=== PATIENT | male | born 1990 | race Caucasian/White ===

== ENCOUNTER 2021-01-29 20:41 | Emergency (ER) | payer SELFPAY ==
[~2021-01-29] VITALS: Ht 177.8 cm; Wt 80.0 kg
--- NOTE | 2021-01-29 20:50 | PHYS DOC ---
General Adult EDM: Chief Complaint: TESTICULAR PAIN OR INJURY HPI: HPI: Patient is a 30 year old male who presents with pain in testicle area. (AIDE PATE MD) HPI: Patient is a 30-year-old male being seen in the ER brought in by EMS today for left lower quadrant pain that radiates to his left flank and left testicle that started this morning. Patient is also reporting decreased urine output. He rates the pain 9 out of 10, no alleviating or aggravating factors, no treatment prior to arrival. Patient denies any trauma or injury. Patient denies chest pain, shortness of breath, fevers, nausea, vomiting, diarrhea, dysuria, urinary frequency or urgency. EMS administered 50 mics of fentanyl prior to patient arrival in the ER. (HYUN HUYNH APRN) Review of Systems: Review of Systems: Constitutional: Denies fever or chills Eyes: Denies change in visual acuity HENT: Denies nasal congestion or sore throat Respiratory: Denies cough or shortness of breath Cardiovascular: Denies chest pain or edema GI: Denies abdominal pain, nausea, vomiting, bloody stools or diarrhea : Denies dysuria Musculoskeletal: Denies back pain or joint pain Integument: Denies rash Neurologic: Denies headache, focal weakness or sensory changes Endocrine: Denies polyuria or polydipsia Lymphatic: Denies swollen glands Psychiatric: Denies depression or anxiety (AIDE PATE MD) Review of Systems: 14 body systems of the review of systems have been reviewed. See HPI for pertinent positive and negative responses, otherwise all other systems are negative, nonpertinent or noncontributory (HYUN HUYNH APRN) Physical Exam: PE: Constitutional: Well developed, well nourished, no acute distress, non-toxic appearance. [] HENT: Normocephalic, atraumatic, bilateral external ears normal, oropharynx moist, no oral exudates, nose normal. [] Eyes: PERRLA, EOMI, conjunctiva normal, no discharge. [] Neck: Normal range of motion, no tenderness, supple, no stridor. [] Cardiovascular:Heart rate regular rhythm, no murmur [] Lungs & Thorax: Bilateral breath sounds clear to auscultation [] Abdomen: Bowel sounds normal, soft, no tenderness, no masses, no pulsatile masses. [] Skin: Warm, dry, no erythema, no rash. [] Back: No tenderness, no CVA tenderness. [] Extremities: No tenderness, no cyanosis, no clubbing, ROM intact, no edema. [] Neurologic: Alert and oriented X 3, normal motor function, normal sensory function, no focal deficits noted. [] Psychologic: Affect normal, judgement normal, mood normal. [] (AIDE PATE MD) PE: General: Appears well, nontoxic, and comfortable Skin: Warm, dry. HEENT: Atraumatic, PERRLA. Moist mucous membranes. Neck trachea midline, normal range of motion Respiratory: Normal work of breathing, clear to auscultation bilaterally, normal work of breathing, no tachypnea Cardiovascular: Regular rate and rhythm. Normal peripheral perfusion. No edema Abdomen soft, no distention, active bowel sounds in all 4 quadrants, tenderness with palpation to left lower quadrant, no rebound tenderness Genital: No swelling noted to the testicles, no high riding testes, cremasteric reflex intact, pain with palpation of testes Back: Normal range of motion, negative CVA tenderness Musculoskeletal: No swelling or deformity. Neuro: Alert and oriented x, 4 no focal deficits Psych: Normal affect and mood (HYUN HUYNH APRN) EKG: EKG: [] (AIDE PATE MD) Radiology/Procedures: Radiology/Procedures: [] (AIDE PATE MD) Radiology/Procedures: PROCEDURE: CT ABDOMEN PELVIS WO CONTRAST Exam: CT of abdomen and pelvis without contrast INDICATION: Left lower quadrant pain, flank pain, rule out stone TECHNIQUE: Sequential axial images through the abdomen and pelvis obtained without IV contrast. Sagittal and coronal reformatted images were reconstructed from the axial data and reviewed. Exposure: One or more of the following in the visualized dose reduction techniques were utilized for this examination: 1. Automated exposure control 2. Adjustment of the MA and/or KV according to patient size 3. Use of iterative of reconstructive technique Comparisons: None FINDINGS: Heart size is normal. No pericardial effusion. Strandy opacities at dependent portion lungs likely representing atelectasis. No pleural effusion. Diffuse hepatic steatosis. Spleen, pancreas, gallbladder and adrenals are unremarkable. Bilateral nonobstructing renal calculi are noted. There is a 2 mm calculus at the left ureterovesicular junction. Mild left-sided hydronephrosis. Bladder is decompressed not well evaluated. Prostate is not enlarged. Large and small bowel are unremarkable. Appendix is normal. No free intra-abdominal air or fluid. No obstruction. Abdominal aorta has a normal course and caliber. No enlarged abdominal lymph nodes are identified. No suspicious osseous lesions or acute fractures. IMPRESSION: 1. A 2 mm calculus the distal left ureter with mild left-sided hydronephrosis. 2. Several nonobstructing renal calculi bilaterally. 3. Diffuse hepatic steatosis. Electronically signed by: Homero Ma MD (01/29/2021 9:41 PM) [facility] DICTATED AND SIGNED BY: HOMERO MA MD DATE: 01/29/212136 CC: AIDE PATE MD; HYUN HUYNH APRN; PCP,NO ~MTH0 0 (HYUN HUYNH APRN) Heart Score: Risk Factors: Risk Factors: DM, Current or recent (<one month) smoker, HTN, HLP, family history of CAD, obesity. Risk Scores: Score 0 - 3: 2.5% MACE over next 6 weeks - Discharge Home Score 4 - 6: 20.3% MACE over next 6 weeks - Admit for Clinical Observation Score 7 - 10: 72.7% MACE over next 6 weeks - Early Invasive Strategies (AIDE PATE MD) C/O Chest Pain: No (HYUN HUYNH APRN) Course & Med Decision Making: Course & Med Decision Making Pertinent Labs and Imaging studies reviewed. (See chart for details) [] (AIDE PATE MD) Course & Med Decision Making Patient is a 30-year-old male being seen in the ER today for left lower quadrant pain that radiates to his left flank and left testicle. Work-up in the ER consisted of blood work, urinalysis, CT scan of abdomen pelvis. Patient has an elevated white blood cell count of 16.6. CT scan showed a 2 mm kidney stone in the distal left ureter with mild left-sided hydro. Patient was treated in the ER with pain medication, nausea medication, Flomax. Patient's case discussed with supervising physician. Dr. Pate will assume care of patient at this time.[id number] (HYUN HUYNH APRN) Dragon Disclaimer: Dragon Disclaimer: This electronic medical record was generated, in whole or in part, using a voice recognition dictation system. (AIDE PATE MD) Departure Departure: Scripts Hydrocodone/Ibuprofen (HYDROCODONE-IBUPROFEN 7.5-200 ) 1 Each Tablet 1 TAB PO PRN Q6HRS PRN for PAIN, #30 TAB 0 Refills Prov: AIDE PATE MD 01/29/21 Tamsulosin Hcl (FLOMAX) 0.4 Mg Cap.er.24h 0.4 MG PO DAILY for kidney, #30 CAP.SR Prov: AIDE PATE MD 01/29/21 Ondansetron Hcl (ZOFRAN) 4 Mg Tablet 8 MG PO QIDPRN for nv, #30 TAB Prov: AIDE PATE MD 01/29/21 Ciprofloxacin (CIPRO) 500 Mg/5 Ml Emily.mc.rec 500 MG PO BID for uti for 7 Days, MISC Prov: AIDE PATE MD 01/29/21 Dragon Disclaimer This chart was dictated in whole or in part using Voice Recognition software in a busy, high-work load, and often noisy Emergency Department environment. It may contain unintended and wholly unrecognized errors or omissions. (AIDE PATE MD) Attending Signature Attending Signature I have participated in the care of this patient and I have reviewed and agree with all pertinent clinical information above including history, exam, and recommendations. (AIDE PATE MD) AIDE PATE MD Jan 29, 2021 20:50 HYUN HUYNH APRN Jan 29, 2021 21:05
[2021-01-29] MEDS ORDERED: ONDANSETRON PF 4 MG/2 ML VIAL. IVP ONE ×2 (21:00→22:00)
[2021-01-29] MEDS ORDERED: IV NORMAL SALINE 1,000ML 1,000 ML IV ONE (21:00)
[2021-01-29 21:33] LABS: BASO # 0.1 x10^3/uL (0.0-0.2); BASO % 1 % (0-3); EOS # 0.3 x10^3/uL (0.0-0.7); EOS % 2 % (0-3); HEMATOCRIT 42.1 % (39.0-53.0); HEMOGLOBIN 14.3 g/dL (13.0-17.5); LYMPH # 2.4 x10^3/uL (1.0-4.8); LYMPH % 15 % (24-48); MEAN CORPUSCULAR HEMOGLOBIN 31 pg (25-35); MEAN CORPUSCULAR HGB CONC 34 g/dL (31-37); MEAN CORPUSCULAR VOLUME 90 fL (79-100); MONO # 0.8 x10^3/uL (0.0-1.1); MONO % 5 % (0-9); NEUT % 78 % (31-73); PLATELET COUNT 321 x10^3/uL (140-400); RED BLOOD COUNT 4.67 x10^6/uL (4.30-5.70); RED CELL DISTRIBUTION WIDTH 12.6 % (11.5-14.5); WHITE BLOOD COUNT 16.6 x10^3/uL (4.0-11.0)
[2021-01-29 21:43] LABS: ALBUMIN 4.3 g/dL (3.4-5.0); ALBUMIN/GLOBULIN RATIO 1.3 (1.0-1.7); ALK PHOS 97 U/L (46-116); ALT (SGPT) 35 U/L (16-63); AST (SGOT) 21 U/L (15-37); BLOOD UREA NITROGEN 18 mg/dL (8-26); BUN/CREATININE RATIO 15 (6-20); CALCIUM 9.6 mg/dL (8.5-10.1); CARBON DIOXIDE 28 mmol/L (21-32); CREATININE 1.2 mg/dL (0.7-1.3); GFR 72.1; GLUCOSE 130 mg/dL (70-99); LIPASE 72 U/L (73-393); TOTAL BILIRUBIN 0.5 mg/dL (0.2-1.0); TOTAL PROTEIN 7.6 g/dL (6.4-8.2)
--- NOTE | 2021-01-29 21:43 | RAD ---
Exam: CT of abdomen and pelvis without contrast INDICATION: Left lower quadrant pain, flank pain, rule out stone TECHNIQUE: Sequential axial images through the abdomen and pelvis obtained without IV contrast. Sagit leatha and coronal reformatted images were reconstructed from the axial data and reviewed. Exposure: One or more of the following in the visualized dose reduction techniques were utilized for this examination: 1. Automated exposure control 2. Adjustment of the MA and/or KV according to patient size 3. Use of iterative of reconstructive technique Comparisons: None FINDINGS: Heart size is normal. No pericardial effusion. Strandy opacities at dependent portion lungs likely re presenting atelectasis. No pleural effusion. Diffuse hepatic steatosis. Spleen, pancreas, gallbladder and adrenals are unremarkable. Bilateral nonobstructing renal calculi are noted. There is a 2 mm calculus at the left ureterovesicul ar junction. Mild left-sided hydronephrosis. Bladder is decompressed not well evaluated. Prostate is not enlarged. Large and small bowel are unremarkable. Appendix is normal. No free intra-abdominal air or fluid. No obstruction. Abdominal aorta has a normal course and caliber. No enlarged abdominal lymph nodes are identified. No suspicious osseous lesions or acute fractures. IMPRESSION: 1. A 2 mm calculus the distal left ureter with mild left-sided hydronephrosis. 2. Several nonobstructing renal calculi bilaterally. 3. Diffuse hepatic steatosis. Electronically signed by: Homero Ash MD (01/29/2021 9:41 PM) [facility]
[2021-01-29] MEDS ORDERED: TAMSULOSIN 0.4 MG CAP.ER.24H. PO ONE (22:00)
[2021-01-29] MEDS ORDERED: KETOROLAC 15 MG/ML VIAL. IVP ONE (22:00)
[2021-01-29 22:19] LABS: % ATYL 7 % (0-0); % BANDS 7 % (0-9); % EOS 1 % (0-5); % LYMPHS 6 % (24-48); % MONOS 2 % (0-10); % SEGS 77 % (35-66)
[2021-01-29 22:20] LABS: PLT ESTIMATE ADEQUATE (ADEQUATE)
[2021-01-29 22:32] LABS: BILIRUBIN,URINE NEG (NEG); CLARITY,URINE CLEAR; COLOR,URINE YELLOW; GLUCOSE,URINE NEG (NEG); UROBILINOGEN,URINE 0.2 mg/dL (0.2 mg/dL)
[2021-01-29 22:33] LABS: NITRITE,URINE NEG (NEG)
[2021-01-29 22:37] LABS: BACTERIA,URINE FEW /HPF (0-FEW); RBC,URINE >40 /HPF (0-2); SQUAMOUS EPITHELIAL CELL,UR FEW /LPF
[2021-01-29] MEDS ORDERED: HYDR-1179 PO (23:59)
[2021-01-29] MEDS ORDERED: ONDA4TAB7 PO (23:59)
[2021-01-29] MEDS ORDERED: CIPR500S2 PO (23:59)
[2021-01-29] MEDS ORDERED: TAMS0.4C97 PO (23:59)
[2021-01-30] MEDS ORDERED: CIPROFLOXACIN HCL 500 MG TABLET PO ONE
[2021-01-30] MEDS ORDERED: MORPHINE SULFATE 10 MG/ML SYRINGE. SQ ONE (00:15)
[2021-01-30 00:27] VITALS: BP 143/58
== END 2021-01-30 00:19 | disposition home or self-care (01) ==
LOC: ER 20:41
DX: N20.1 Calculus of ureter (principal); N20.0 Calculus of kidney; N13.30 Unspecified hydronephrosis; K76.0 Fatty (change of) liver, not elsewhere classified
CPT/HCPCS: 36415; 74176; 80047; 80053; 81001; 83690; 85007; 85025; 87491; 87591; 96361; 96372; 96374; 96375; 96376; 99284; J1885; J2270; J2405; J3010; J7030

== ENCOUNTER 2021-04-19 19:11 | Emergency (ER) | payer SELFPAY ==
[~2021-04-19] VITALS: Ht 182.9 cm; Wt 93.0 kg
[~2021-04-19 19:11] MED LIST: CIPR500S2 PO; HYDR-1179 PO; ONDA4TAB7 PO; TAMS0.4C97 PO
--- NOTE | 2021-04-19 19:38 | PHYS DOC ---
Past History Past Surgical History: No Surgical History Alcohol Use: None Adult General Chief Complaint Chief Complaint: ABDOMINAL PAIN HPI HPI Patient is an otherwise healthy 30-year-old male with a past medical history of renal stones, after about 2 months ago who presents with right flank pain that started earlier today and is back and is moved down towards his groin which is similar to his last presentation of kidney stones. Denies any recent traumas, travels, illnesses, fevers, chest pain, shortness of breath, nausea, vomiting, diarrhea, penile discharge or history of STIs. Denies any testicular pain. States he did not take any medications for this. Review of Systems Review of Systems Review of systems otherwise unremarkable except noted in HPI Allergies Allergies Allergies Coded Allergies Type Severity Reaction Last Updated Verified No Known Drug Allergies 01/29/21 No Physical Exam Physical Exam Constitutional: Well developed, well nourished, no acute distress, non-toxic appearance. [] HENT: Normocephalic, atraumatic, bilateral external ears normal, oropharynx moist, no oral exudates, nose normal. [] Eyes: conjunctiva normal, no discharge. [] Neck: Normal range of motion, no tenderness, supple, no stridor. [] Cardiovascular:Heart rate regular rhythm, no murmur [] Lungs & Thorax: Bilateral breath sounds clear to auscultation [] Abdomen: soft, right flank tenderness/periumbilical and right lower quadrant tenderness, with no rebound or guarding,, no masses, no pulsatile masses. [] Skin: Warm, dry, no erythema, no rash. [] Back: No tenderness, Extremities: No tenderness, no cyanosis, no clubbing, ROM intact, no edema. [] Neurologic: Alert and oriented X 3, no focal deficits noted. [] Psychologic: Affect normal, judgement normal, mood normal. [] EKG EKG [] Radiology/Procedures Radiology/Procedures [] One or more of the following individualized dose reduction techniques were utilized for this examination: 1. Automated exposure control 2. Adjustment of the mA and/or kV according to patient size 3. Use of iterative reconstruction technique. Findings: Inherently limited evaluation without intravenous contrast. Development of mild hydroureteronephrosis on the right in the setting of a 3.5 mm stone within the distal ureter approximately 2 cm above the ureterovesicular junction. Several additional small nonobstructing intrarenal stones on the right. Solitary small nonobstructing intrarenal stone on the left. No dilatation of the left collecting system. Unchanged appearance of the urinary bladder and prostate. Hepatic steatosis with some areas of sparing such as along the gallbladder fossa/falciform ligament. Unremarkable gallbladder, biliary tree, pancreas, spleen and adrenal glands. Within normal limits colon, appendix, small bowel and stomach. Nonaneurysmal aorta. No significant change in size of scattered lymph nodes. No newly seen osseous abnormality. Motion degraded assessment of the lower lungs mildly heterogeneous attenuation at the lung bases slightly less pronounced from the comparison: The against a mild active infectious or inflammatory proces s. Impression: 1. Mild hydroureteronephrosis on the right in the setting of a 3.5 mm stone located approximately 2 cm above the ureterovesicular junction. 2. Several additional small nonobstructing intrarenal stones on the right and a solitary nonobstructing intrarenal stone on the left. 3. Hepatic steatosis. Electronically signed by: LIVAN CANSECO MD (04/19/2021 8:54 PM) [facility] DICTATED AND SIGNED BY: LIVAN CANSECO MD Heart Score C/O Chest Pain: No Risk Factors: Risk Factors: DM, Current or recent (<one month) smoker, HTN, HLP, family history of CAD, obesity. Risk Scores: Risk Factors: DM, Current or recent (<one month) smoker, HTN, HLP, family history of CAD, obesity. Course & Med Decision Making Course & Med Decision Making Patient is a 30-year-old male who presents with right flank pain Vital signs not concerning. Physical exam noted above. Given pain medicine. Patient denies need for nausea medicine. Laboratory analysis not concerning. CT with a 3.5 cm distal stone about the fall into the bladder. Patient with no fever, no tachycardia. Pain controlled. Nausea controlled. Discussed all findings with patient and recommended symptomatic treatment at home. Watchful waiting and follow-up in the morning with primary care physician and set up a follow-up as soon as possible. Gave return precautions to the ED. Patient grateful, verbalized understanding and agreed with plan of discharge. [] Dragon Disclaimer Dragon Disclaimer This electronic medical record was generated, in whole or in part, using a voice recognition dictation system. Departure Departure: Impression: Primary Impression: Ureterolithiasis Disposition: HOME / SELF CARE / HOMELESS Condition: GOOD Referrals: PCP,NO (PCP) JV LANDRY MD, BRADLEY W MD Patient Instructions: Diet for Kidney Stones, Kidney Stones Additional Instructions: Thanks for coming into the emergency department tonight and allowing us to take care of you. Please read the attached information carefully to go over things we discussed. Please be sure to drink plenty of fluids. You do have a 3.5 mm stone that is about to drop into your bladder. So the symptoms should persist for much longer. Please continue a ibuprofen, Tylenol, Benadryl regimen and please be sure to drink plenty of fluids. Please call your primary care physic caleb first thing in the morning to update on your ED visit and set up a follow- up. You can also call the urologist, Dr. Ge at the number provided to set up a follow-up appointment to discuss your tendency to get kidney stones. Please come back to the ED with new or concerning symptoms as discussed. EVA INFANTE MD Apr 19, 2021 19:38
[2021-04-19] MEDS ORDERED: MORPHINE SULFATE 4 MG/ML DISP.SYRIN. IV ONE (19:45)
[2021-04-19] MEDS ORDERED: KETOROLAC 15 MG/ML VIAL. IVP ONE (19:45)
[2021-04-19] MEDS ORDERED: ONDANSETRON PF 4 MG/2 ML VIAL. IM ONE (20:00)
[2021-04-19 20:01] LABS: BASO # 0.2 x10^3/uL (0.0-0.2); BASO % 2 % (0-3); EOS # 0.3 x10^3/uL (0.0-0.7); EOS % 3 % (0-3); HEMATOCRIT 44.7 % (39.0-53.0); HEMOGLOBIN 15.1 g/dL (13.0-17.5); LYMPH # 3.6 x10^3/uL (1.0-4.8); LYMPH % 34 % (24-48); MEAN CORPUSCULAR HEMOGLOBIN 30 pg (25-35); MEAN CORPUSCULAR HGB CONC 34 g/dL (31-37); MEAN CORPUSCULAR VOLUME 90 fL (79-100); MONO # 0.6 x10^3/uL (0.0-1.1); MONO % 6 % (0-9); NEUT # 5.8 x10^3uL (1.8-7.7); NEUT % 54 % (31-73); PLATELET COUNT 354 x10^3/uL (140-400); RED BLOOD COUNT 4.98 x10^6/uL (4.30-5.70); RED CELL DISTRIBUTION WIDTH 13.3 % (11.5-14.5); WHITE BLOOD COUNT 10.6 x10^3/uL (4.0-11.0)
[2021-04-19 20:08] LABS: CALCIUM 9.9 mg/dL (8.5-10.1); POTASSIUM 3.2 mmol/L (3.5-5.1)
--- NOTE | 2021-04-19 20:56 | RAD ---
Study: CT abdomen/pelvis without intravenous contrast Indication: Right flank and lower abdominal pain. Comparison: 01/29/2021 Technique: Helical CT imaging performed of the abdomen and pelvis without the use of intravenous cont rast. Sagittal and coronal reformats were obtained. One or more of the following individualized dose reduction techniques were utilized for this examinat ion: 1. Automated exposure control 2. Adjustment of the mA and/or kV according to patient size 3. Use of iterative reconstruction technique. Findings: Inherently limited evaluation without intravenous contrast. Development of mild hydroureteronephrosis on the right in the setting of a 3.5 mm stone within the di stal ureter approximately 2 cm above the ureterovesicular junction. Several additional small nonobstr ucting intrarenal stones on the right. Solitary small nonobstructing intrarenal stone on the left. No dilatation of the left collecting system. Unchanged appearance of the urinary bladder and prostate. Hepatic steatosis with some areas of sparing such as along the gallbladder fossa/falciform ligament. Unremarkable gallbladder, biliary tree, pancreas, spleen and adrenal glands. Within normal limits col on, appendix, small bowel and stomach. Nonaneurysmal aorta. No significant change in size of scattered lymph nodes. No newly seen osseous abnormality. Motion degraded assessment of the lower lungs mildly heterogeneous attenuation at the lung bases slightly less pronounced from the comparison: The against a mild activ e infectious or inflammatory process. Impression: 1. Mild hydroureteronephrosis on the right in the setting of a 3.5 mm stone located approximately 2 cm above the ureterovesicular junction. 2. Several additional small nonobstructing intrarenal stones on the right and a solitary nonobstruct ing intrarenal stone on the left. 3. Hepatic steatosis. Electronically signed by: LIVAN CANSECO MD (04/19/2021 8:54 PM) [facility]
[2021-04-19 21:01] LABS: BILIRUBIN,URINE SMALL (NEG); CLARITY,URINE CLEAR; COLOR,URINE YELLOW; GLUCOSE,URINE NEG (NEG)
[2021-04-19 21:02] LABS: BACTERIA,URINE FEW /HPF (0-FEW); NITRITE,URINE NEG (NEG); UROBILINOGEN,URINE 0.2 mg/dL (0.2 mg/dL); WBC,URINE 0 /HPF (0-4)
[2021-04-19 21:45] VITALS: BP 120/66
[2021-04-19] MEDS ORDERED: oxyCODONE/APAP 5/325 1 TAB TABLET PO ONE (22:00)
== END 2021-04-19 22:00 | disposition home or self-care (01) ==
LOC: ER 19:11
DX: N13.2 Hydronephrosis with renal and ureteral calculous obstruction (principal); Z87.442 Personal history of urinary calculi
CPT/HCPCS: 36415; 74176; 80048; 81001; 85025; 96372; 96374; 96375; 99284; J1885; J2270; J2405